=== PATIENT | female | born 2000 | race African-American/Black ===

== ENCOUNTER 2018-11-12 12:26 | Emergency (ER) | payer OTHER, SELFPAY | END 2018-11-12 14:02 | disposition home or self-care (01) | LOC: ERS 12:26 | DX: T16.1XXA Foreign body in right ear, initial encounter (principal); F41.9 Anxiety disorder, unspecified | CPT/HCPCS: 99281 ==

== ENCOUNTER 2019-01-11 12:41 | Emergency (ER) | payer SELFPAY ==
[2019-01-11 13:28] LABS: #Basophils 0.1 thou/uL (0.0-0.2); #Eosinphils 0.1 thou/uL (0.0-0.7); #Lymphocytes 2.1 thou/uL (1.20-3.40); #Monocytes 0.3 thou/uL (0.11-0.59); #Neutrophils 2.1 thou/uL (1.40-6.50); %Basophils 1.1 % (0.0-1.0); %Eosinophils 1.6 % (0.0-10.0); %Lymphocytes 45.5 % (28.0-48.0); %Monocytes 6.7 % (0.0-4.0); %Neutrophils 45.1 % (31.0-61.0); Hemoglobin 12.1 g/dL (12.0-16.0); Mean Corpuscular Volume 87.9 fL (78.0-98.0); Mean Platelet Volume 9.2 fL (7.4-10.4); Platelet Count 193 thou/uL (130-400); RBC Distribution Width 11.8 % (11.5-14.5); Red Blood Cell (RBC) Count 4.17 mill/uL (4.00-5.20); White Blood Cell (WBC) Count 4.6 thou/uL (4.8-10.8)
[2019-01-11 14:02] LABS: ALT (SGPT) 29 U/L (8-55); AST (SGOT) 29 U/L (5-34); Albumin 3.9 g/dL (3.5-5.0); Alkaline Phosphatase 75 U/L (40-100); Anion Gap 9 mmol/L (10-20); BUN (Urea Nitrogen) 7 mg/dL (7.0-18.7); Bilirubin, Total 0.4 mg/dL (0.2-1.2); Calc. Creatinine Clearance 0 mL/min (70-130); Calcium 9.2 mg/dL (7.8-10.44); Carbon Dioxide 23 mmol/L (22-29); Chloride 110 mmol/L (98-107); Estimated GFR-MDRD Greater than 90; Globulin 3.3 g/dL (2.4-3.5); Glucose 79 mg/dL (70-105); Potassium 3.7 mmol/L (3.5-5.1); Protein, Total 7.2 g/dL (6.0-8.3); Sodium 138 mmol/L (136-145)
[2019-01-11 15:22] LABS: Bacteria/HPF None Seen HPF (None Seen); Bilirubin Negative (Negative); Blood, Urine Negative (Negative); Clarity Clear (Clear); Glucose, Urine (Dipstick) Normal (Negative); Leukocyte 75 Leu/uL (Negative); Nitrite Negative (Negative); Protein, Urine (Dipstick) Negative (Neg-Trace); RBC/HPF 0-3 HPF (0-3); Squamous Epithelial 0-3 HPF (0-3); Urobilinogen Normal mg/dL (Less than 2); WBC/HPF 0-3 HPF (0-3)
[2019-01-11 15:23] LABS: Pregnancy Test - Urine (BHCG) Negative (Negative); Pregu Control Background? CLEAR/WHITE (CLR/WHITE); Pregu Control Bar Appear? YES (CONTROL BAR); Specific Gravity 1.017 (1.002-1.036)
== END 2019-01-11 15:48 | disposition home or self-care (01) ==
LOC: ERS 12:41
DX: O03.4 Incomplete spontaneous abortion without complication (principal); F41.9 Anxiety disorder, unspecified
CPT/HCPCS: 36415; 80053; 81003; 81015; 81025; 84702; 85025; 86900; 86901; 99284; A4353

== ENCOUNTER 2019-04-03 10:34 | Emergency (ER) | payer SELFPAY ==
[2019-04-03 11:03] LABS: #Basophils 0.1 thou/uL (0.0-0.2); #Lymphocytes 2.2 thou/uL (1.20-3.40); #Monocytes 0.5 thou/uL (0.11-0.59); #Neutrophils 3.9 thou/uL (1.40-6.50); %Basophils 0.8 % (0.0-1.0); %Eosinophils 0.7 % (0.0-10.0); %Monocytes 7.6 % (0.0-4.0); %Neutrophils 57.9 % (31.0-61.0); Mean Corpuscular HGB CONC 33.4 g/dL (32.0-36.0); Mean Corpuscular Hemoglobin 29.8 pg (25.0-35.0); Mean Corpuscular Volume 89.3 fL (78.0-98.0); Mean Platelet Volume 8.6 fL (7.4-10.4); Platelet Count 219 thou/uL (130-400); RBC Distribution Width 11.6 % (11.5-14.5); Red Blood Cell (RBC) Count 4.02 mill/uL (4.00-5.20); White Blood Cell (WBC) Count 6.7 thou/uL (4.8-10.8)
[2019-04-03 11:08] LABS: Bacteria/HPF None Seen HPF (None Seen); Bilirubin Negative (Negative); Blood, Urine Negative (Negative); Clarity Extra Turbid (Clear); Glucose, Urine (Dipstick) Normal (Negative); Leukocyte 500 Leu/uL (Negative); Nitrite Negative (Negative); Pregnancy Test - Urine (BHCG) POSITIVE (Negative); Pregu Control Background? CLEAR/WHITE (CLR/WHITE); Pregu Control Bar Appear? YES (CONTROL BAR); Protein, Urine (Dipstick) Negative (Neg-Trace); Specific Gravity 1.012 (1.002-1.036); Urobilinogen Normal mg/dL (Less than 2)
[2019-04-03 11:28] LABS: Anion Gap 13 mmol/L (10-20); BUN (Urea Nitrogen) 5 mg/dL (7.0-18.7); Calc. Creatinine Clearance 0 mL/min (70-130); Calcium 9.8 mg/dL (7.8-10.44); Carbon Dioxide 22 mmol/L (22-29); Chloride 106 mmol/L (98-107); Estimated GFR-MDRD Greater than 90; Glucose 73 mg/dL (70-105); Potassium 3.7 mmol/L (3.5-5.1); Sodium 137 mmol/L (136-145)
--- NOTE | 2019-04-03 12:03 | ULT ---
EXAM: US Pelvic W Doppler PROVIDED CLINICAL HISTORY: Lower abdominal pain. COMPARISON: None FINDINGS: There is evidence of a single intrauterine gestation. Cardiac Doppler does demonstrates heart t ones with a heart rate of 158 bpm. The crown-rump length measures 5.4 cm consistent with gestational age by ultrasound of 12 weeks with an MOIRA on 10/16/2019. There is a heterogeneous mass seen within the left aspect body and fundus of the uterus measuring 4 c m in greatest dimensions and likely represents a uterine fibroid. There is an area of slight heterogeneity within the right lateral aspect body of uterus which may represent an additional small uterine fibroid. Small irregular hypoechoic structure is seen in the right ovary measuring 1.3 cm which may represent a corpus luteal cyst. The left ovary has a normal sonographic appearance. Doppler evaluation with spectral analysis demonstrates flow in each ovary. No free fluid is seen in the pelvis. IMPRESSION: 1. Single intrauterine gestation with heart tones documented. Gestational age by measurement of the crown-rump rump length is 12 weeks. 2. Evidence of uterine fibroids with a dominant heterogeneous fibroid in the left aspect body and fun dus of the uterus measuring 4 cm.
[2019-04-03 12:26] LABS: ALT (SGPT) 9 U/L (8-55); AST (SGOT) 13 U/L (5-34); Albumin 3.8 g/dL (3.5-5.0); Alkaline Phosphatase 83 U/L (40-100); Bilirubin, Direct 0.1 mg/dL (0.1-0.3); Bilirubin, Total 0.3 mg/dL (0.2-1.2); Protein, Total 7.7 g/dL (6.0-8.3)
[2019-04-03] MEDS ORDERED: Azithromycin 250 MG TAB ONE (13:35)
[2019-04-03] MEDS ORDERED: cefTRIAXone\\ROCEPHIN 250 MG VIAL ONE (13:35)
[2019-04-03] MEDS ORDERED: Lidocaine 1% PF 5 ML VIAL ONE (13:35)
[2019-04-04 23:07] LABS: Chlamydia by PCR Not Detected (NotDetected); GC by PCR Not Detected (NotDetected)
== END 2019-04-03 14:12 | disposition home or self-care (01) ==
LOC: ERS 10:34
DX: O99.89 Other specified diseases and conditions complicating pregnancy, childbirth and the puerperium (principal); R10.30 Lower abdominal pain, unspecified; O99.341 Other mental disorders complicating pregnancy, first trimester; F41.9 Anxiety disorder, unspecified; Z3A.12 12 weeks gestation of pregnancy
CPT/HCPCS: 36415; 76856; 80048; 80076; 81003; 81015; 81025; 84702; 85025; 86900; 86901; 87480; 87491; 87510; 87591; 87660; 93976; 96372; J0696; J2001

== ENCOUNTER 2019-05-07 21:36 | Emergency (ER) | payer MEDICAID, SELFPAY ==
[2019-05-07] MEDS ORDERED: Acetaminophen 500 MG TAB ONE (22:16)
== END 2019-05-07 23:43 | disposition left against medical advice (07) ==
LOC: ERS 21:36
DX: O99.89 Other specified diseases and conditions complicating pregnancy, childbirth and the puerperium (principal); M54.5 Low back pain; Z3A.16 16 weeks gestation of pregnancy; W03.XXXA Other fall on same level due to collision with another person, initial encounter
CPT/HCPCS: 99283